=== PATIENT | male | born 1985 | race Hispanic/Latino ===

== ENCOUNTER 2022-08-11 08:38 | Day surgery (SDC) | payer OTHER ==
[2022-08-11] MEDS ORDERED: Lidocaine 1% PF 5 ML VIAL ONE (09:17)
[2022-08-11] MEDS ORDERED: Sodium Bicarbonate 2.5 MEQ/5 ML VIAL ONE (09:18)
[2022-08-11 09:44] LABS: INR-International Normal Ratio 0.9; Prothrombin Time 9.8 sec (9.5-12.1)
[2022-08-11 13:00] VITALS: BP 122/87; TEMP 97.8
== END 2022-08-11 11:05 | disposition home or self-care (01) ==
LOC: CSHCT 08:38
PROVIDERS: ATTEND Internal Medicine Hematology & Oncology
PROC: 079T3ZX Drainage of Bone Marrow, Percutaneous Approach, Diagnostic (ICD-10-PCS; principal; 2022-08-11)
PROC: 07DR3ZX Extraction of Iliac Bone Marrow, Percutaneous Approach, Diagnostic (ICD-10-PCS; principal; 2022-08-11)
DX: D70.4 Cyclic neutropenia (principal); D59.19 Other autoimmune hemolytic anemia; E27.40 Unspecified adrenocortical insufficiency
CPT/HCPCS: 38222; 85097; 85610; 88184; 88237; 88305; 88313; 88341; 88342